=== PATIENT | male | born 1965 | race Caucasian/White ===

== ENCOUNTER 2019-08-16 08:41 | Inpatient (IN) ==
[2019-08-16] MEDS ORDERED: NORMAL SALINE 1,000 ML IV ONE ×4 (09:05→14:46)
[2019-08-16] MEDS ORDERED: PIPERACILLIN SODIUM/TAZOBACTAM 3.375 GM in DEXTROSE 5 % IN WATER 100 ML IV ONE ×2 (09:08)
[2019-08-16] MEDS ORDERED: ONDANSETRON HCL/PF 2 MG/ML VIAL IV ONE (09:08)
[2019-08-16] MEDS ORDERED: ACETAMINOPHEN 1,000 MG/100 ML BTL IV ONE (09:08)
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
[2019-08-16 09:28] LABS: Urine Bilirubin Negative (NEGATIVE); Urine Blood 250 /ul (NEGATIVE); Urine Ketone 15 mg/dL (NEGATIVE); Urine Protein 100 mg/dL (NEGATIVE); Urine Specific Gravity >=1.030 SP.GR. (1.005-1.030); Urine Urobilinogen Normal (NORMAL); Urine pH 5.5 pH (5.0-7.0)
[2019-08-16 09:34] LABS: Albumin * 2.9 gm/dl (3.4-5.0); Anion Gap 11.3 mmol/L (6.8-13.8); BUN/Creatinine Ratio 15.1 (9.0-21.6); Bilirubin, Total 0.9 mg/dL (0.0-1.1); Ca. Corrected For Albumin 8.9 mg/dL (8.4-10.2); Calcium * 8.3 mg/dL (7.9-10.9); Carbon Dioxide 27.4 mmol/L (24-32.6); Potassium 3.7 mmol/L (3.4-4.6)
[2019-08-16 09:38] LABS: Hemoglobin 13.5 gm/dL (13.5-18.0); Mean Cell Volume 86.3 fl (78-100); Mean Corpuscular Hemoglobin 28.4 pg (27-31); Mean Corpuscular Hgb Conc 32.9 g/dl (32-36); Mean Platelet Volume 10.8 fl (8-11.3); Platelet Count 120 K/mm3 (150-450); Red Blood Count 4.75 M/mm3 (4.7-6.0); Red Cell Distribution Width 13.2 % (11.5-14.0); White Blood Count 16.1 K/mm3 (4.0-10.5)
[2019-08-16 09:39] LABS: Urine Appearance Cloudy (CLEAR); Urine Bacteria 3+; Urine Color Yellow; Urine Nitrite Positive (NEGATIVE)
[2019-08-16 09:50] LABS: Total Cells Counted 100
[2019-08-16 09:56] LABS: Band 12 % (0-2.0); Lymphocyte 12 % (20-51); Monocyte 17 % (0-9); Neutrophil 59 % (42-75); Neutrophil # 9.5 K/mm3 (1.3-6.0)
[2019-08-16 09:58] LABS: Platelet Estimate Normal (NORMAL); RBC Morphology Normal (NORMAL)
[2019-08-16] MEDS ORDERED: DIATRIZOATE MEGLUMINE, SODIUM 30 ML BTL PO ONE (10:20)
[2019-08-16] MEDS ORDERED: DOCUSATE SODIUM 100 MG CAPSULE PO SCH (14:15)
[2019-08-16] MEDS ORDERED: ONDANSETRON HCL/PF 2 MG/ML VIAL IV PRN (14:15)
[2019-08-16] MEDS ORDERED: LOPERAMIDE HCL 2 MG CAPSULE PO PRN (14:47)
[2019-08-16] MEDS: PANTOPRAZOLE SODIUM 40 MG in NORMAL SALINE 100 ML IV SCH (15:02)
[2019-08-16] MEDS: ENOXAPARIN SODIUM 40 MG/0.4 ML SYRG SC SCH (15:02)
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
[2019-08-16] MEDS: ACETAMINOPHEN 325 MG TABLET PO PRN ×2 (16:52→22:18)
[2019-08-16] MEDS: PIPERACILLIN SODIUM/TAZOBACTAM 3.375 GM in DEXTROSE 5 % IN WATER 100 ML IV SCH ×2 (17:20)
[2019-08-17] MEDS: PANTOPRAZOLE SODIUM 40 MG in NORMAL SALINE 100 ML IV SCH ×2 (02:41→14:03)
[2019-08-17] MEDS: PIPERACILLIN SODIUM/TAZOBACTAM 3.375 GM in DEXTROSE 5 % IN WATER 100 ML IV SCH ×6 (02:41→18:33)
[2019-08-17] MEDS: ACETAMINOPHEN 325 MG TABLET PO PRN ×2 (06:32→18:56)
[2019-08-17] MEDS: NORMAL SALINE 1,000 ML IV PRN ×3 (07:04→22:19)
[2019-08-17 07:28] LABS: Hematocrit 36.5 % (42.0-52.0); Hemoglobin 12.1 gm/dL (13.5-18.0); Mean Cell Volume 86.1 fl (78-100); Mean Corpuscular Hemoglobin 28.5 pg (27-31); Mean Corpuscular Hgb Conc 33.2 g/dl (32-36); Mean Platelet Volume 10.5 fl (8-11.3); Neutrophil # 7.6 K/mm3 (1.3-6.0); Platelet Count 126 K/mm3 (150-450); Red Blood Count 4.24 M/mm3 (4.7-6.0); Red Cell Distribution Width 13.7 % (11.5-14.0); White Blood Count 9.9 K/mm3 (4.0-10.5)
[2019-08-17 07:39] LABS: Albumin * 2.3 gm/dl (3.4-5.0); BUN/Creatinine Ratio 12.5 (9.0-21.6); Bilirubin, Total 0.6 mg/dL (0.0-1.1); Ca. Corrected For Albumin 8.8 mg/dL (8.4-10.2); Calcium * 7.8 mg/dL (7.9-10.9); Carbon Dioxide 21.6 mmol/L (24-32.6); Potassium 3.6 mmol/L (3.4-4.6)
--- NOTE | 2019-08-17 10:55 | PN ---
Subjective - Date and Time Seen Date: 08/17/19 Time: 10:46 Subjective Narrative: 54-year-old male admitted for acute pyelonephritis, acute pancreatitis, RADHA, and dehydration was evaluated at bedside and was found to be afebrile and in no acute distress. Patient has shown clinical improvement since arriving at our facility, this morning he reported resolved abdominal pain and feeling more energetic and stronger. His epigastric tenderness has improved. L abs this morning demonstrate resolution of the elevated lipase and mild improvement in his kidney function. His leukocytosis has also resolved. Since patient reports improvement of his abdominal discomfort we will attempt starting oral intake with a low-fat diet. In the meantime he is to continue on IV antibiotics and IV fluid for hydration and treatment of his infection. Preliminary lab culture results revealed growth of a gram-negative organism therefore we will keep him on the current antibiotics until the final reports with susceptibility results return and then will optimize IV antibiotics. Follow-up CMP has been ordered for tomorrow morning to reevaluate his renal function and electrolytes. Objective - Review of Systems Generalized/Overall Review: Reports: No Symptoms Reported EENTM: Reports: No Symptoms Reported Respiratory: Reports: No Symptoms Reported Cardiac: Reports: No Symptoms Reported Abdominal: Reports: No Symptoms Reported Genitourinary Symptoms: Reports: No Symptoms Reported Musculoskeletal Complaints: Reports: No Symptoms Reported Neurological: Reports: No Symptoms Reported, Pre-existing Deficit Skin: Reports: No Symptoms Reported Endocrine: Reports: No Symptoms Reported - Vitals Vitals: Last Vital Signs Temp 37.4 C 08/17/19 06:27 Pulse 93 08/17/19 06:27 Resp 20 08/17/19 06:27 BP 137/71 08/17/19 06:27 Pulse Ox 97 08/17/19 06:27 - Abnormal Lab Findings Abnormal Lab Findings: Abnormal Lab Results 08/17/19 08/17/19 Range/Units 07:19 07:19 RBC 4.24 L (4.7-6.0) M/mm3 Hgb 12.1 L (13.5-18.0) gm/dL Hct 36.5 L (42.0-52.0) % Plt Count 126 L (150-450) K/mm3 Immature Gran % (Auto) 0.90 H (0.001-0.429) % Immature Gran # (Auto) 0.09 H (0.000-0.0310) K/mm3 Neutrophils % 77.0 H (42-75.0) % Lymphocytes % 9.9 L (20-51) % Monocytes % 11.7 H (0.0-9) % Neutrophils # 7.6 H (1.3-6.0) K/mm3 Lymphocytes # 0.98 L (1.5-3.5) k/mm3 Monocytes # 1.2 H (0.0-1.0) k/mm3 Carbon Dioxide 21.6 L (24-32.6) mmol/L Anion Gap 15.0 H (6.8-13.8) mmol/L BUN 25 H (6-23) mg/dL Creatinine 2.00 H (0.4-1.4) mg/dL Est GFR (Non-Af Amer) 37 L (60-130) mL/min Random Glucose 117 H (70-110) mg/dL Calcium 7.8 L (7.9-10.9) mg/dL Total Protein 6.0 L (6.2-8.2) gm/dL Albumin 2.3 L (3.4-5.0) gm/dl - Exam Constitutional: Present: Alert, Oriented x3, Cooperative, Well developed, Well nourished, No distress ENT Exam: Present: normal ENT inspection, hearing grossly normal, pharynx normal, TMs normal Neck: Present: non-tender, full range of motion, supple, normal inspection, trachea midline Breasts: Present: Exam deferred Respiratory: Present: chest non-tender, lungs clear, normal breath sounds, no respiratory distress, no accessory muscle use Cardiovascular/Chest: Present: normal peripheral pulses, regular rate, rhythm, no chest tenderness, no edema, no gallop, no JVD, no murmur, no rub Abdomen: Present: Normal bowel sounds, soft, nontender, nondistended, no rebound tenderness, no hepatospenomegaly, no masses, obese /Rectal: Present: Exam deferred Extremity: Present: non-tender, no pedal edema, no calf tenderness, normal capillary refill, pelvis stable Skin Exam: Present: normal color, warm/dry, no cyanosis Lymphatic: Present: no adenopathy Neurologic: Present: alert, normal mood/affect, abnormal engineering vice president II-XII, other - Pre-existing quadriplegia Appearance: Present: appropriate appearance, appropriate insight, neat, no memory impairment Eye contact: Present: cooperative, good eye contact, normal speech Thoughts: Present: normal thought pattern, no apparent hallucination Assessment/Plan Plan Narrative: Patient's diarrhea has resolved on any a small loose stool was reported by nursing staff. His vitals remained stable so business intelligence developer has now been stopped but will continue checking vitals [id number]. We will reevaluate labs tomorrow morning and see how he tolerates oral intake. - Problems/Diagnosis (1) Pyelonephritis Problem: Acute (2) RADHA (acute kidney injury) Problem: Acute (3) Dehydration Problem: Acute (4) Decubitus skin ulcer Problem: Chronic (5) Paraplegia following spinal cord injury Problem: Chronic (6) Diarrhea Problem: Resolved Qualifiers: Diarrhea type: presumed infectious Qualified Code(s): R19.7 - Diarrhea, unspecified (7) UTI (urinary tract infection) due to urinary indwelling catheter Problem: Acute (8) Sepsis Problem: Resolved Qualifiers: Sepsis type: sepsis due to unspecified organism Sepsis acute organ dysfunction status: with acute organ dysfunction Severe sepsis acute organ dysfunction type: acute renal failure Severe sepsis shock status: without septic shock
[2019-08-17] MEDS: ENOXAPARIN SODIUM 40 MG/0.4 ML SYRG SC SCH (14:03)
[2019-08-18] MEDS: ACETAMINOPHEN 325 MG TABLET PO PRN (01:01)
[2019-08-18] MEDS: PANTOPRAZOLE SODIUM 40 MG in NORMAL SALINE 100 ML IV SCH (01:30)
[2019-08-18] MEDS: PIPERACILLIN SODIUM/TAZOBACTAM 3.375 GM in DEXTROSE 5 % IN WATER 100 ML IV SCH ×4 (01:55→09:53)
[2019-08-18 07:15] LABS: BUN/Creatinine Ratio 10.3 (9.0-21.6); Bilirubin, Total 0.3 mg/dL (0.0-1.1); Ca. Corrected For Albumin 9.1 mg/dL (8.4-10.2); Calcium * 7.8 mg/dL (7.9-10.9); Carbon Dioxide 26.4 mmol/L (24-32.6); Potassium 3.4 mmol/L (3.4-4.6); Total Protein 5.7 gm/dL (6.2-8.2)
[2019-08-18] MEDS: NORMAL SALINE 1,000 ML IV PRN (07:40)
--- NOTE | 2019-08-18 11:15 | DS ---
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 (6) Diarrhea Problem: Resolved Qualifiers: Diarrhea type: presumed infectious Qualified Code(s): R19.7 - Diarrhea, unspecified (7) UTI (urinary tract infection) due to urinary indwelling catheter Problem: Acute Qualifiers: Indwelling urinary catheter type: indwelling urethral catheter (8) Sepsis Problem: Resolved Qualifiers: Sepsis type: sepsis due to unspecified organism Sepsis acute organ dysfunction status: with acute organ dysfunction Severe sepsis acute organ dysfunction type: acute renal failure Severe sepsis shock status: without septic shock Date of Discharge:: 08/18/19 Hospital Course: 54-year-old male who was admitted for sepsis secondary to acute pyelonephritis, dehydration, acute kidney injury, and acute pancreatitis was evaluated at bedside and was found to be afebrile and in no acute distress. Patient has responded well to treatment, he has not had any recurrence of fever and his vitals are now stable. Patient was found to have a complicated UTI and involving his kidneys due to an infected indwelling bladder catheter which culture results revealed is grown Klebsiella. The susceptibility report demonstrate adequate coverage with the IV antibiotics that was administered during the hospitalization as well as other oral antibiotics. Patient was placed on bowel meds initially but oral intake was started yesterday and he reports tolerance no issues with either swallowing or his digestion. He is epigastric tenderness has also resolved and his lipase levels are now normal. Labs this morning also demonstrated resolution of his leukocytosis and left shift and improvement of his renal function, however he is still not his baseline. Patient will need follow-up labs on outpatient basis to continue monitoring his renal function. He also expresses a desire to go home and given his improvement decision to discharge the patient home with instructions to follow-up with his PCP next week and with lab orders to continue monitoring renal function was made. Procedures Performed: none Results and Findings: Pending Mircobiology Results 08/16/19 09:42 Blood Blood Culture - Preliminary NO GROWTH AFTER 48 HOURS 08/16/19 09:17 Blood Blood Culture - Preliminary NO GROWTH AFTER 48 HOURS Lab Pending Results 08/16/19 09:16: WBC 16.1 H, RBC 4.75, Hgb 13.5, Hct 41.0 L, MCV 86.3, MCH 28.4, MCHC 32.9, RDW 13.2, Plt Count 120 L, MPV 10.8, Neutrophils % (Manual) 59, Band Neuts % (Manual) 12 H, Lymphocytes % (Manual) 12 L, Monocytes % (Manual) 17 H, Neutrophils # (Manual) 9.5 H, Lymphocytes # (Manual) 1.9, Monocytes # (Manual) 2.7 H, Platelet Estimate Normal, RBC Morphology Normal 08/16/19 09:16: Sodium 132, Plasma Sodium 133, Potassium 3.7, Chloride 97, Carbon Dioxide 27.4, Anion Gap 11.3, BUN 31 H, Creatinine 2.05 H, Est GFR (Non- Af Amer) 36 L D, BUN/Creatinine Ratio 15.1, Random Glucose 136 H, Calcium 8.3, Calcium Adj for Albumin 8.9, Total Bilirubin 0.9, AST 16, ALT 25, Alkaline Phosphatase 66, Total Protein 7.0, Albumin 2.9 L, Amylase 91, Lipase 531 H 08/16/19 09:16: Urine Color Yellow, Urine Appearance Cloudy, Urine pH 5.5, Ur Specific [place] >=1.030, Urine Protein 100 H, Urine Glucose (UA) Negative, Uri ne Ketones 15, Urine Blood 250 H, Urine Nitrate Positive H, Urine Bilirubin Negative, Prot Sulfosalicylic Acd 4+ H, Urine Urobilinogen Normal, Ur Leukocyte Esterase 25 H, Urine RBC 10-25 H, Urine WBC 10-25 H, Ur Epithelial Cells 0-5, Urine Bacteria 3+ H, Urine Culture Comments Culture to follow 08/16/19 09:16: Lactic Acid, Venous 1.1 08/16/19 09:16: Procalcitonin 28.53 H 08/16/19 12:55: SARS-CoV-2 (PCR) Not detected 08/17/19 07:19: WBC 9.9 D, RBC 4.24 L, Hgb 12.1 L, Hct 36.5 L, MCV 86.1, MCH 28 .5, MCHC 33.2, RDW 13.7, Plt Count 126 L, MPV 10.5, Immature Gran % (Auto) 0.90 H, Immature Gran # (Auto) 0.09 H, Neutrophils % 77.0 H, Lymphocytes % 9.9 L, Monocytes % 11.7 H, Eosinophils % 0.0, Basophils % 0.5, Nucleated RBC % 0.0, Neutrophils # 7.6 H, Lymphocytes # 0.98 L, Monocytes # 1.2 H, Eosinophils # 0.0, Absolute Basophils 0.1 08/17/19 07:19: Sodium 137, Plasma Sodium 137, Potassium 3.6, Chloride 104, Carbon Dioxide 21.6 L, Anion Gap 15.0 H, BUN 25 H, Creatinine 2.00 H, Est GFR (Non-Af Amer) 37 L, BUN/Creatinine Ratio 12.5, Random Glucose 117 H, Calcium 7.8 L, Calcium Adj for Albumin 8.8, Total Bilirubin 0.6, AST 15, ALT 19, Alkaline Phosphatase 53, Total Protein 6.0 L, Albumin 2.3 L, Lipase 199 08/18/19 06:45: Sodium 138, Plasma Sodium 138, Potassium 3.4, Chloride 106, Carbon Dioxide 26.4, Anion Gap 9.0, BUN 19, Creatinine 1.84 H, Est GFR (Non-Af Amer) 41 L, BUN/Creatinine Ratio 10.3, Random Glucose 130 H, Calcium 7.8 L, Calcium Adj for Albumin 9.1, Total Bilirubin 0.3, AST 12, ALT 17 L, Alkaline Phosphatase 47 L, Total Protein 5.7 L, Albumin 2.0 L Discharge Location: Home Disposition: Home self-care Condition: Fair Face to Face Encounter completed per [facility] Guidelines: No Discharge Activity: Activity as tolerated Discharge Diet: General/regular food Referrals: Truman Palmer MD [Primary Care Provider] - Prescriptions (Any new or edited meds): Sulfamethoxazole/Trimethoprim [Bactrim Ds] 1 tab PO BID 14 Days #28 tab Transmission Status: Pending to [place], [place] Loperamide HCl [Imodium] 2 mg PO Q2H PRN #30 cap PRN Reason: Diarrhea Transmission Status: Pending to [place], [place] Complete Home Medications List: Complete Home Medication List: Loperamide HCl [Imodium] 2 mg PO Q2H PRN #30 cap 08/18/19 Sulfamethoxazole/Trimethoprim [Bactrim Ds] 1 tab PO BID 14 Days #28 tab 08/18/19
[2019-08-18 13:35] VITALS: BP 129/76
== END 2019-08-18 13:00 | disposition home or self-care (01) | DRG 698 ==
LOC: MS 08:41 → ER 08:41 → MS 14:42
PROVIDERS: ADMIT Family Medicine; ATTEND Family Medicine
DX: K85.90 Acute pancreatitis without necrosis or infection, unspecified; A09 Infectious gastroenteritis and colitis, unspecified; Z11.59 Encounter for screening for other viral diseases; T83.511A Infection and inflammatory reaction due to indwelling urethral catheter, initial encounter; B96.1 Klebsiella pneumoniae [K. pneumoniae] as the cause of diseases classified elsewhere; E86.0 Dehydration; N10 Acute pyelonephritis; L89.90 Pressure ulcer of unspecified site, unspecified stage; N17.9 Acute kidney failure, unspecified; G82.20 Paraplegia, unspecified
CPT/HCPCS: 36415; 71010; 71045; 74000; 74018; 74177; 80053; 81001; 82150; 83605; 83690; 84145; 85025; 87040; 87077; 87086; 87186; 96361; 96365; 96366; 96367; 96372; 96375; 99285; G0378; J0131; J2405; Q9963; Q9967